=== PATIENT | female | born 1955 | race Caucasian/White ===

== ENCOUNTER → 2018-04-01 | Outpatient (CLI) | payer BC ==
[~2018-04-01] MED LIST: [UNRECOGNIZED DRUG - OTHER]; advair; metformin
--- NOTE | 2018-04-01 18:53 | Diagnostic Imaging Report ---
EXAM: CT Abdomen and Pelvis WITHOUT contrast INDICATION: \[id number] \S\[id number] \S\RENAL COLIC OF LFT SIDE, URINATION COMPARISON: None. TECHNIQUE: Abdomen and pelvis were scanned utilizing a multidetector helical scanner from the lung base to the pubic symphysis without administration of IV contrast. Absence of intravenous contrast decreases sensitivity for detection of focal lesions and vascular pathology. Coronal and sagittal reformations were obtained. Routine protocol was performed. IV CONTRAST: None ORAL CONTRAST: Water COMPLICATIONS: None RADIATION DOSE: Total DLP: 905.57 mGy*cm Estimated effective dose: (DLP x 0.015 x size factor) mSv CTDIvol has been reviewed. It is below the limits set by the Radiation Protocol Committee (RPC). FINDINGS: LINES and TUBES: None. LOWER THORAX: Unremarkable. Mildly elevated left hemidiaphragm. HEPATOBILIARY: Diffuse hepatic steatosis. Hepatomegaly. Otherwise unenhanced liver is unremarkable. No biliary ductal dilation. GALLBLADDER: No radio-opaque stones or sludge. No wall thickening. SPLEEN: No splenomegaly. PANCREAS: No focal masses or ductal dilatation. Tiny pancreatic calcification, could be vascular or from prior pancreatitis (series 3, image 58). ADRENALS: No adrenal nodules KIDNEYS/URETERS: No hydronephrosis. No cystic or solid mass lesions. No stones. GI TRACT: No abnormal distention, wall thickening, or evidence of bowel obstruction. There are scattered diverticula within the colon without evidence of diverticulitis. Appendix is normal. PELVIC ORGANS/BLADDER: Uterus and adnexa are unremarkable on unenhanced CT assessment. Bladder is not fully distended, limiting evaluation. Punctate left pelvic calcification (series 3, image 129). LYMPH NODES: No lymphadenopathy. VESSELS: Unremarkable. PERITONEUM / RETROPERITONEUM: No free air or fluid. BONES: Degenerative changes of the visualized lumbar spine, most notable at L5-S1 and L3-L4. SOFT TISSUES: Unremarkable. IMPRESSION: 1. No nephrolithiasis. No hydronephrosis. Punctate left pelvic calcification is probably a phlebolith and less likely to represent distal left ureteral calculus without left hydronephrosis. 2. Enlarged steatotic liver. Signed by: Dr. Celestine Hernandez MD on 04/01/2018 6:50 PM
== END ==
LOC: CT 17:40
PROVIDERS: ATTEND Family Medicine
DX: N23 Unspecified renal colic (principal); R35.0 Frequency of micturition
CPT/HCPCS: 74176

== ENCOUNTER 2019-01-23 12:25 | Emergency (ER) | payer BC ==
--- OUTSIDE RECORDS SUMMARY | 2019-01-23 12:28 | XMS REPORT ---
Author Author [facility] Address Unknown Phone Unavailable Care Team Providers Care Certified Medical Coding Specialist Name Role Phone JAVAN DALAL Unavailable Unavailable Problems This patient has no known problems. Allergies, Adverse Reactions, Alerts This patient has no known allergies or adverse reactions. Medications This patient has no known medications. Results Test Description Test Time Test Comments Text Results Atomic Results Result Comments CT ABDOMEN/PELVIS WO 2018-04-01 18:32:00 [facility] [address] [address] Patient Name: ESTHER ASH MR #: [id number] : 1955 Age/Sex: 62/F Req #: [id number] Adm Physician: Ordered by: JAVAN DALAL DO Report #: [id number] Location: CT Room/Bed: Procedure: [id number] CT/CT ABDOMEN/PELVIS WO Exam Date: 04/01/18 Exam Time: 1809 REPORT STATUS: Signed EXAM: CT Abdomen and Pelvis WITHOUT contrast INDICATION: COMPARISON: None. TECHNIQUE: Abdomen and pelvis were scanned utilizing a multidetector helical scanner from the lung base to the pubic symphysis without administration of IV contrast. Absence of intravenous contrast decreases sensitivity for detection of focal lesions and vascular pathology. Coronal and sagittal reformations were obtained. Routine protocol was performed. IV CONTRAST: None ORAL CONTRAST: Water COMPLICATIONS: None RADIATION DOSE: Total DLP: 905.57 mGy*cm Estimated effective dose: (DLP x 0.015 x size factor) mSv CTDIvol has been reviewed. It is below the limits set by the Radiation Protocol Committee (RPC). FINDINGS: LINES and TUBES: None. LOWER THORAX: Unrema rkable. Mildly elevated left hemidiaphragm. HEPATOBILIARY: Diffuse hepatic steatosis. Hepatomegaly. Otherwise unenhanced liver is unremarkable. No biliary ductal dilation. GALLBLADDER: No radio-opaque stones or sludge. No wall thickening. SPLEEN: No splenomegaly. PANCREAS: No focal masses or ductal dilatation. Tiny pancreatic calcification, could be vascular or from prior pancreatitis (series 3, image 58). ADRENALS: No adrenal nodules KIDNEYS/URETERS: No hydronephrosis. No cystic or solid mass lesions. No stones. GI TRACT: No abnormal distention, wall thickening, or evidence of bowel obstruction. There are scattered diverticula within the colon without evidence of diverticulitis. Appendix is normal. PELVIC ORGANS/BLADDER: Uterus and adnexa are unremarkable on unenhanced CT assessment. Bladder is not fully distended, limiting evaluation. Punctate left pelvic calcification (series 3, image 129). LYMPH NODES: No lymphadenop athy. VESSELS: Unremarkable. PERITONEUM / RETROPERITONEUM: No free air or fluid. BONES: Degenerative changes of the visualized lumbar spine, most notable at L5-S1 and L3-L4. SOFT TISSUES: Unremarkable. IMPRESSION: 1. No nephrolithiasis. No hydronephrosis. Punctate left pelvic calcification is probably a phlebolith and less likely to represent distal left ureteral calculus without left hydronephrosis. 2. Enlarged steatotic liver. Signed by: Dr. Celestine Clay MD on 04/01/2018 6:50 PM Dictated By: CELESTINE CLAY MD 49 Transcribed By: JOCELINE on 04/01/181849 COPY TO: JAVAN DALAL DO
[2019-01-23] MEDS ORDERED: METHYLPREDNISOLONE SOD SUCC 125 MG/2ML VIAL IV STA (13:14)
[2019-01-23] MEDS ORDERED: ALBUTEROL/IPRATROPIUM 3 ML NEB NEB ONE (13:15)
[2019-01-23] MEDS ORDERED: ATORVASTATIN CA20 MG PO (13:20)
[2019-01-23] MEDS ORDERED: CETIRIZINE HCL5 MG (13:21)
[2019-01-23] MEDS ORDERED: SINGULAIR10 MG (13:22)
[2019-01-23] MEDS ORDERED: PROAIR HFA INH8.5 GM (13:23)
[2019-01-23] MEDS ORDERED: FLUCONAZOLE100 MG PO (13:25)
[2019-01-23] MEDS ORDERED: BROMFED DM COU118 ML (13:25)
[2019-01-23] MEDS ORDERED: OMEPRAZOLE40 MG (13:27)
[2019-01-23] MEDS ORDERED: METFORMIN HCL500 MG PO (13:28)
[2019-01-23] MEDS ORDERED: ALBUTEROL/IPRATROPIUM 3 ML NEB ONE (13:37)
[2019-01-23] MEDS ORDERED: METHYLPREDNISOLONE SOD SUCC 125 MG/2ML VIAL ONE (13:38)
--- NOTE | 2019-01-23 13:38 | Diagnostic Imaging Report ---
EXAMINATION: CXR 2 VIEW - HOPD INDICATION: Upper respiratory syndrome. Cough. COMPARISON: None FINDINGS: TUBES and LINES: None. LUNGS: Lungs are well inflated. Right-sided peribronchial cuffing with focal consolidation involving the posterior right upper lobe versus the apical segment of the right lower lobe. Diffuse bronchial wall thickening including the left lung. PLEURA: No pleural effusion or pneumothorax. HEART AND MEDIASTINUM: The cardiomediastinal silhouette is unremarkable. Likely hilar adenopathy. BONES AND SOFT TISSUES: No acute osseous lesion. Anterior cervical fusion plate. Soft tissues are unremarkable. UPPER ABDOMEN: No free air under the diaphragm. IMPRESSION: Right lung consolidative pneumonia. Signed by: Dr. Tristan Brooke M.D. on 01/23/2019 1:34 PM
[2019-01-23] MEDS ORDERED: ALBUTEROL0.63 MG/3 NEB (14:58)
[2019-01-23] MEDS ORDERED: LEVAQUIN500 MG PO (14:58)
[2019-01-23 15:11] VITALS: BP 162/73
[2019-01-23] MEDS ORDERED: LEVOFLOXACIN 750MG/D5W 150ML 150 ML IV ONE (15:30)
== END 2019-01-23 15:18 | disposition home or self-care (01) ==
LOC: FSED 12:25
DX: R05 Cough (principal); J15.9 Unspecified bacterial pneumonia; I10 Essential (primary) hypertension; E11.9 Type 2 diabetes mellitus without complications
CPT/HCPCS: 71046; 80053; 85025; 99283; J2930

== ENCOUNTER 2020-02-20 21:43 | Emergency (ER) | payer BC, MEDICARE ==
[~2020-02-20] VITALS: Ht 162.6 cm; Wt 120.2 kg
[~2020-02-20 21:43] MED LIST changes: +ALBUTEROL0.63 MG/3 NEB; +ATORVASTATIN CA20 MG PO; +BROMFED DM COU118 ML; +CETIRIZINE HCL5 MG; +FLUCONAZOLE100 MG PO; +LEVAQUIN500 MG PO; +METFORMIN HCL500 MG PO; +OMEPRAZOLE40 MG; +PROAIR HFA INH8.5 GM; +SINGULAIR10 MG
[2020-02-20] MEDS ORDERED: NAPROSYN500 MG PO (22:02)
[2020-02-20] MEDS ORDERED: TYLENOL WITH C1 EACH PO (22:02)
--- NOTE | 2020-02-20 22:07 | Emergency Department Note ---
History of Present Illnes History of Present Illness Chief Complaint: Extremity Trauma/Pain History of Present Illness This is a 64 year old female . Historian: Patient Arrival Mode: Car Patient Access Required: No Onset (how long ago): day(s) (1 day pt was using a pyrex collection device with her left hand in order to collect urine yesterday when the pain started it is localized to ulnar side of wrist and distal forearm, worse with movement no fever no cp no sob no fever no chills) Severity: moderate Onset quality: gradual Duration (how long): day(s) Timing of current episode: constant Progression: unchanged Chronicity: new Context: Denies recent illness, Denies recent surgery, Denies recent immo bilization, Denies recent travel, Denies trauma/injury, Denies new medications, Denies hx of DVT/PE, Denies non-compliance w/ medications, Denies other Relieving factors: immobilization Exacerbating factors: movement Associated symptoms: Denies chest pain, Denies cough, Denies nausea/vomiting, Denies shortness of breath Treatments prior to arrival: NSAID Past Medical/Family History Physician Review I have reviewed the patient's past medical and family history. Any updates have been documented here. Past Medical History Recent Fever: No Clinical Suspicion of Infectio: No New/Unexplained Change in Ment: No Past Medical History: Hypertension, Diabetes, Asthma, Hyperlipedemia, Osteoarthritis Other Medical History: arthritis high cholestgerol djd of spine Past Surgical History: Tubal Ligation Other Surgery: NECK FUSION Social History Smoking Cessation: Never Smoker Counseling Performed: No Alcohol Use: Occasional Any Illegal Drug Use: No TB Exposure/Symptoms: No Physically hurt or threatened: No Family History Family history of heart diseas: No Other Last Tetanus: UNK Any Pre-Existing Lines (PICC,: No Is patient up to date on immun: No Last Flu: NO Last Pneumovax: NO Review of Systems Review of Systems Cardiovascular: Denies chest pain Respiratory: Denies dyspnea Musculoskeletal: Reports as per HPI (pain with flexion and extension at wrist and ulnar deviation at wrist no swelling no erythema) Integumentary: Reports no symptoms Neurological: Denies numbness, Denies paresthesia, Denies weakness Physical Exam Related Data Allergies: Coded Allergies: iodine (Verified Allergy, Intermediate, rash, 08/26/14) nitrofurantoin (Verified Allergy, Mild, NAUSEA, 01/23/19) Triage Vital Signs Vital Signs Date Time Temp Pulse Resp B/P (MAP) Pulse Ox O2 Delivery O2 Flow Rate FiO2 02/20/20 21:50 97.3 73 17 163/92 99 Physical Exam CONSTITUTIONAL HENT EYES NECK PULMONARY CARDIOVASCULAR GASTROINTESTINAL GENITOURINARY SKIN MUSCULOSKELETAL NEUROLOGICAL PSYCHOLOGICAL Results Imaging Imaging results reviewed: Yes Impressions Procedure: HOPD/WRIST 3VW LT - HOPD Exam Date: 02/20/20 Exam Time: 2209 REPORT STATUS: Signed X-ray left wrist 3 views HISTORY: Pain. COMPARISON: None available. FINDINGS: Bones: No acute displaced fracture. Osseous alignment is within normal limits. Joints: The joint spaces are well-maintained. Soft tissues: The soft tissues appear unremarkable. IMPRESSION: No acute radiographic osseous abnormality. Mild soft tissue swelling about the wrist. Signed by: Dwigth Whiting DO on 02/20/2020 10:18 PM Dictated By: DWIGHT WHITING DO 17 Transcribed By: JOCELINE on 02/20/202217 Assessment & Plan Medical Decision Making MDM ACS, FX, sprain, tendinitis, gout, inflammatory process, septic join Reassessment Reassessment t Assessment & Plan Final Impression: (1) Wrist pain, left (2) Tendinitis (3) Hypertension Depart Disposition: HOME, SELF-CARE Last Vital Signs Date Time Temp Pulse Resp B/P (MAP) Pulse Ox O2 Delivery O2 Flow Rate FiO2 02/20/20 21:50 97.3 73 17 163/92 99 Home Meds Active Scripts Acetaminophen With Codeine (TYLENOL WITH CODEINE #3 TABLET) 1 Each Tablet, 300 MG PO TID for pain for 5 Days, #15 TAB Prov:JUDITH VIGIL MD 02/20/20 Naproxen (NAPROSYN) 500 Mg Tablet, 500 MG PO BID for 7 Days, #14 TAB Prov:JUDITH VIGIL MD 02/20/20 Albuterol Sulfate (ALBUTEROL SULFATE) 0.63 Mg/3 Ml Vial.neb, 0.083 % NEB QID for wheezing for 10 Days, #40 Prov:PATY RICHEY MD 01/23/19 Levofloxacin (LEVAQUIN) 500 Mg Tablet, 500 MG PO DAILY for pneumonia for 10 Days, #10 TAB 0 Refills Prov:PATY RICHEY MD 01/23/19 Reported Medications Metformin Hcl (METFORMIN HCL) 500 Mg Tablet, 500 MG PO BID for DIABETIC, #60 TAB 01/23/19 Omeprazole (OMEPRAZOLE) 40 Mg Capsule.dr, for GERD 01/23/19 Fluconazole (FLUCONAZOLE) 100 Mg Tablet, 100 MG PO for ASTHMA, TAB 01/23/19 D-Methorphan Hb/P-Epd Hcl/Bpm (BROMFED DM COUGH SYRUP) 118 Ml Syrup, for COUGH 01/23/19 Albuterol Sulf* (PROAIR HFA INHALER*) 8.5 Gm Inh, for ASTHMA 01/23/19 Montelukast Sodium (SINGULAIR) 10 Mg Tablet, DAILY for ASTHMA 01/23/19 Cetirizine Hcl (CETIRIZINE HCL) 5 Mg Tablet, DAILY 01/23/19 Atorvastatin Calcium (ATORVASTATIN CALCIUM) 20 Mg Tablet, 20 MG PO HS for HIGH CHOLESTEROL, #30 TAB 01/23/19 [advair] No Conflict Check 08/25/12 JUDITH VIGIL MD Feb 20, 2020 22:07
--- NOTE | 2020-02-20 22:22 | Diagnostic Imaging Report ---
X-ray left wrist 3 views HISTORY: Pain. COMPARISON: None available. FINDINGS: Bones: No acute displaced fracture. Osseous alignment is within normal limits. Joints: The joint spaces are well-maintained. Soft tissues: The soft tissues appear unremarkable. IMPRESSION: No acute radiographic osseous abnormality. Mild soft tissue swelling about the wrist. Signed by: Dwight Whiting DO on 02/20/2020 10:18 PM
[2020-02-20 22:54] VITALS: BP 157/88
== END 2020-02-20 22:30 | disposition home or self-care (01) ==
LOC: FSED 21:43
DX: M25.532 Pain in left wrist (principal); M77.9 Enthesopathy, unspecified; I10 Essential (primary) hypertension; E11.9 Type 2 diabetes mellitus without complications; E78.5 Hyperlipidemia, unspecified
CPT/HCPCS: 99283

== ENCOUNTER → 2021-01-31 | Outpatient (CLI) | payer MEDICARE, OTHER ==
[~2021-01-31] MED LIST changes: +ACCOLATE20 MG PO; +ADVIL PM CAPLE1 EACH PO; +BENICAR HCT 401 EAC1 PO; +CBD OIL SL; +CBD OINTMENT TOP; -CETIRIZINE HCL5 MG; +CETIRIZINE HCL5 MG PO; +FISH OIL 1,2001 EACH PO; +MELOXICAM7.5 MG PO; +NAPROSYN500 MG PO; +NEURONTIN400 MG PO; -OMEPRAZOLE40 MG; +OMEPRAZOLE40 MG PO; +OZEMPIC1 MG/0.75 SC; +PEPCID20 MG PO; -PROAIR HFA INH8.5 GM; +PROAIR HFA INH8.5 GM INH; -SINGULAIR10 MG; +SINGULAIR10 MG PO; +SYNJARDY 12.5-1 EACH PO; +TRESIBA FL200 UNIT/1 SC; +TYLENOL WITH C1 EACH PO; +WELCHOL625 MG PO
[2021-01-31 09:03] LABS: BASOPHILS # (AUTO) 0.1 (0.0-0.1); BASOPHILS % 0.8 % (0.0-1.0); EOSINOPHILS # (AUTO) 0.3 (0.0-0.4); EOSINOPHILS % 3.1 % (0.0-6.0); LYMPHOCYTES # (AUTO) 3.1 (1.0-3.2); LYMPHOCYTES % 36.9 % (18.0-39.1); MEAN CORPUSCULAR HEMOGLOBIN 27.9 pg (28-32); MEAN CORPUSCULAR HGB CONC 31.8 g/dL (31-35); MEAN CORPUSCULAR VOLUME 87.6 fL (81-99); MONOCYTES # (AUTO) 0.6 (0.2-0.8); MONOCYTES % 7.5 % (4.4-11.3); NEUTROPHILS # (AUTO) 4.4 (2.1-6.9); NEUTROPHILS % 51.3 % (38.7-80.0); PLATELET COUNT 297 x10e3/uL (140-360); RED BLOOD COUNT 5.02 x10e6/uL (3.6-5.1); RED CELL DISTRIBUTION WIDTH 15.8 % (11.7-14.4)
[2021-01-31 09:20] LABS: INR 0.83
[2021-01-31 09:21] LABS: PARTIAL THROMBOPLASTIN TIME 25.8 seconds (23.8-35.5)
[2021-01-31 09:27] LABS: ANION GAP 16.7 mmol/L (8-16); CALCIUM 9.7 mg/dL (8.4-10.2); CREATININE, SERUM 1.02 mg/dL (0.57-1.11); POTASSIUM 3.7 mmol/L (3.5-5.1)
== END | disposition home or self-care (01) ==
LOC: LAB 14:25 → EDSTATUS 02-01 07:30
PROVIDERS: ATTEND Neurological Surgery
DX: Z01.810 Encounter for preprocedural cardiovascular examination (principal); Z01.812 Encounter for preprocedural laboratory examination; Z01.818 Encounter for other preprocedural examination; U07.1 COVID-19; M48.02 Spinal stenosis, cervical region
CPT/HCPCS: 36415; 71046; 80048; 85025; 85610; 85730; 86850; 86900; 93005; U0002

== ENCOUNTER 2021-02-15 06:33 | Observation (INO) | payer MEDICARE, OTHER ==
[~2021-02-15] VITALS: Ht 165.1 cm; Wt 119.3 kg
[2021-02-15] VITALS (9 sets, daily range): BP systolic 127–152; BP diastolic 57–88
[2021-02-15] MEDS ORDERED: Vancomycin IV 1 GM VIAL ONE (06:42)
[2021-02-15] MEDS ORDERED: THROMBIN FOR SOLN 5,000 UNIT VIAL ONE (06:42)
[2021-02-15] MEDS ORDERED: LIDOCAINE 1% W/EPINEPHRINE 20 ML VIAL ONE (06:42)
[2021-02-15] MEDS ORDERED: SODIUM CHLORIDE 0.9% 50ML 100 ML ONE (08:14)
[2021-02-15] MEDS ORDERED: ACETAMINOPHEN 1000 MG/100 ML 100 ML IV ONE (08:22)
[2021-02-15] MEDS ORDERED: LIDOCAINE HCL (LTA) 4 ML SOLN ONE (08:23)
[2021-02-15] MEDS ORDERED: IBUPROFEN 800MG/ 200ML 200 ML IV ONE (08:23)
[2021-02-15] MEDS ORDERED: HYDROMORPHONE 2MG/ML 2 MG/ML ML IV PRN ×2 (10:45)
[2021-02-15] MEDS ORDERED: ALBUTEROL SULFATE HFA 8GM INHALATION AEROSOL INH PRN (10:45)
[2021-02-15] MEDS ORDERED: PROMETHAZINE HCL (IM) 25 MG/ML VIAL IM PRN (10:45)
[2021-02-15] MEDS ORDERED: DEXTROSE 50% SYRINGE 50 ML IV PRN (10:45)
[2021-02-15] MEDS ORDERED: LACTATED RINGER'S 1,000 ML IV SCH (10:45)
[2021-02-15] MEDS ORDERED: ALBUTEROL SULF 0.083% NEB SOLN 3 ML NEB NEB PRN (10:45)
[2021-02-15] MEDS ORDERED: ONDANSETRON HCL INJ 2MG/ML 2ML 2 MG/ML VIAL IV PRN (10:45)
[2021-02-15] MEDS ORDERED: IBUPROFEN PO SCH (10:45)
[2021-02-15] MEDS ORDERED: MORPHINE SULFATE INJ 4 MG/ML INJ 1ML IM PRN (10:45)
[2021-02-15] MEDS ORDERED: OXYCODONE/ACETAMINOPHEN 5-325 1 EACH TABLET PO PRN (10:45)
[2021-02-15] MEDS ORDERED: MAGNESIUM/ALUMINUM/SIMETHICONE 30 ML UDC PO PRN (10:45)
[2021-02-15] MEDS ORDERED: CARISOPRODOL 350 MG TAB PO PRN (10:45)
[2021-02-15] MEDS ORDERED: FAMOTIDINE 20 MG TAB PO PRN (10:45)
[2021-02-15] MEDS ORDERED: DIPHENHYDRAMINE PO SCH (10:45)
[2021-02-15] MEDS ORDERED: CEPACOL SORE THROAT LOZENGES PO PRN (10:45)
[2021-02-15] MEDS ORDERED: ACETAMINOPHEN 325 MG TAB PO PRN (10:45)
[2021-02-15] MEDS ORDERED: HYDROCODON-ACE1 EA12 PEG (10:51)
[2021-02-15] MEDS ORDERED: LIDOCAINE HCL 2% JELLY 5 ML TUBE ONE (12:29)
[2021-02-15] MEDS ORDERED: ONDANSETRON HCL INJ 2MG/ML 2ML 2 MG/ML VIAL ONE (12:29)
[2021-02-15] MEDS ORDERED: SEVOFLURANE INHAL SOLN 250 ML PEN BTL ONE (12:29)
[2021-02-15] MEDS ORDERED: ROCURONIUM BROMIDE 10 MG/ML 5ML VIAL IV ONE (12:29)
[2021-02-15] MEDS ORDERED: NEOSTIGMINE 1 MG/ML 10ML VIAL ONE (12:29)
[2021-02-15] MEDS ORDERED: DEXAMETHASONE SOD PHOS INJ 4 MG/ML VIAL ONE (12:29)
[2021-02-15] MEDS ORDERED: GLYCOPYRROLATE INJ 0.2 MG/ML VIAL ONE (12:29)
[2021-02-15] MEDS ORDERED: PROPOFOL IV EMULSION 10 MG/ML 20 ML VIAL ONE (12:29)
[2021-02-15] MEDS ORDERED: POVIDONE IODINE 0.05% 0.05 % ML PO ONE (12:29)
[2021-02-15] MEDS ORDERED: LIDOCAINE HCL 2% LOCAL INJ 5 ML SDV VIAL INJ ONE (12:29)
[2021-02-15] MEDS ORDERED: MIDAZOLAM HCL 2 MG/2 ML VIAL ONE (13:28)
[2021-02-15] MEDS: Cefazolin 1 GM in SODIUM CHLORIDE 0.9% 50ML 50 ML IV SCH (16:24)
[2021-02-15] MEDS: COLESEVELAM HCL 625 MG TAB PO SCH (16:36)
[2021-02-15] MEDS: METFORMIN HCL 500 MG TAB CR PO SCH (16:36)
[2021-02-15] MEDS ORDERED: MONTELUKAST SODIUM 10 MG TAB PO SCH (21:00)
[2021-02-15] MEDS ORDERED: ZOLPIDEM TARTRATE 5 MG TAB PO PRN (21:00)
[2021-02-15] MEDS ORDERED: INSULIN DEGLUDEC SC SCH (21:00)
[2021-02-15] MEDS ORDERED: CBD OIL SL SCH (21:00)
[2021-02-15] MEDS ORDERED: GABAPENTIN 300 MG CAP PO SCH (21:00)
[2021-02-16] VITALS: BP 122/54
[2021-02-16] MEDS: Cefazolin 1 GM in SODIUM CHLORIDE 0.9% 50ML 50 ML IV SCH ×2 (01:22→09:30)
[2021-02-16 04:00] VITALS: BP 150/86
[2021-02-16] MEDS: METFORMIN HCL 500 MG TAB CR PO SCH (08:00)
[2021-02-16 08:18] VITALS: BP 142/61
[2021-02-16] MEDS ORDERED: NON-FORMULARY MEDICATION (Cetirizine Hcl 10 MG) PO SCH (09:00)
[2021-02-16] MEDS ORDERED: ZAFIRLUKAST 20 MG PO SCH (09:00)
[2021-02-16] MEDS ORDERED: MELOXICAM 7.5 MG TAB PO SCH (09:00)
[2021-02-16] MEDS: COLESEVELAM HCL 625 MG TAB PO SCH (09:00)
[2021-02-16] MEDS ORDERED: DHA PO SCH (09:00)
[2021-02-16] MEDS ORDERED: FISH OIL PO SCH (09:00)
[2021-02-16] MEDS ORDERED: EPA PO SCH (09:00)
[2021-02-16] MEDS ORDERED: OLMESARTAN 20 MG TAB PO SCH (09:00)
[2021-02-16 10:04] VITALS: BP 142/61
[2021-02-16 12:06] VITALS: BP 127/71
== END 2021-02-16 12:49 | disposition home or self-care (01) ==
LOC: OR 06:33 → PACU V 10:45 → MED/SURG 11:56
PROVIDERS: ADMIT Neurological Surgery; ATTEND Neurological Surgery
DX: M50.123 Cervical disc disorder at C6-C7 level with radiculopathy (principal)
CPT/HCPCS: 20931; 22551; 22845; 36415 ×2; 72040; 77003; 82948 ×2; 86850; 86900; 88304; 93005; C1713 ×2; G0378 ×2; J0131; J0690 ×2; J1100; J2001 ×2; J2250; J2405; J2704; J2710; J3370

== ENCOUNTER → 2021-03-15 | Outpatient (CLI) | payer MEDICARE, OTHER ==
[~2021-03-15] MED LIST changes: +HYDROCODON-ACE1 EA12 PEG
== END ==
LOC: RAD 12:52
PROVIDERS: ATTEND Neurological Surgery
DX: M50.20 Other cervical disc displacement, unspecified cervical region (principal); M43.22 Fusion of spine, cervical region
CPT/HCPCS: 72050

== ENCOUNTER 2021-03-29 13:00 | Outpatient (RCR) | payer OTHER | END 2021-03-31 | LOC: PT 13:00 | PROVIDERS: ATTEND Neurological Surgery | DX: M50.123 Cervical disc disorder at C6-C7 level with radiculopathy (principal) ==

== ENCOUNTER → 2021-05-01 | Outpatient (RCR) | payer OTHER | LOC: PT 04-03 12:57 | PROVIDERS: ATTEND Neurological Surgery | DX: M50.123 Cervical disc disorder at C6-C7 level with radiculopathy (principal) | CPT/HCPCS: 97139 ==

== ENCOUNTER 2021-05-29 14:00 | Outpatient (RCR) | payer OTHER | END 2021-05-31 | LOC: PT 14:00 | PROVIDERS: ATTEND Neurological Surgery | DX: M50.123 Cervical disc disorder at C6-C7 level with radiculopathy (principal) | CPT/HCPCS: 97139 ==

== ENCOUNTER 2021-06-19 13:51 | Outpatient (RCR) | payer OTHER | END 2021-07-01 | LOC: PT 13:51 | PROVIDERS: ATTEND Neurological Surgery | DX: M50.123 Cervical disc disorder at C6-C7 level with radiculopathy (principal) ==